=== PATIENT | male | born 1970 | race Caucasian/White ===

== ENCOUNTER 2018-10-15 21:08 | Emergency (ER) | payer SELFPAY ==
[~2018-10-15] VITALS: Ht 170.2 cm; Wt 117.0 kg
[~2018-10-15 21:08] MED LIST: ASP81TEC PO; CEPH500C PO; CODE-54 PO; CYCL10TA9 PO; GLIP10TA13 PO; HYDR-1231 PO; HYDR1CAP2 PO; HYOS0.1216 PO; IBP800T PO; IBUP800T26 PO; LISI10TA PO; LITH300C PO; METF1000 PO; METR500T PO; MTF500T PO; PARO20TA57 PO; PARO40TA2 PO; QUET50TA PO; SMV20T PO
[2018-10-15] MEDS ORDERED: PARO40TA3 (21:20)
[2018-10-15] MEDS ORDERED: LISI1TAB8 (21:20)
[2018-10-15] MEDS ORDERED: LTH450TCR (21:20)
[2018-10-15] MEDS ORDERED: GLIP10TA13 (21:20)
[2018-10-15] MEDS ORDERED: METF-399 (21:20)
[2018-10-15] MEDS ORDERED: LISI-552 (21:20)
--- NOTE | 2018-10-15 21:26 | ED Back Pain ---
General Chief Complaint: Back Problems Stated Complaint: LOWER BACK PAIN Nursing Triage Note: C/O R BACK PAIN X 3-4 DAYS, PATIENT REPORTS PAIN GOING DOWN INTO TESTICLE Nursing Sepsis Screen: No Definite Risk Source of Information: Patient, Other Exam Limitations: No Limitations History of Present Illness Date Seen by Provider: Oct 15, 2018 Time Seen by Provider: 21:15 Initial Comments Patient presents to ER with chief complaint last 2 days progressively worsening pain starting in his middle to low back going on the right side radiating to his right groin and right testicle. No dysuria or hematuria. No history of kidney stones. No history of back problems or back surgeries. He's had an appendectomy and gallbladder out. He does take Paxil, lithium, and denies a history of recreational drugs in the past 20 years. No trauma, falls or wrecks. No numbness weakness loss of control of bowel or bladder. He is a history of diabetes on metformin and glipizide. Allergies and Home Medications Allergies Coded Allergies: No Known Drug Allergies (Unverified , 01/29/10) Patient Home Medication List Home Medication List Reviewed: Yes Review of Systems Constitutional: No chills, No malaise EENTM: No ear pain, No eye pain Respiratory: No cough, No phlegm Cardiovascular: No chest pain, No edema Gastrointestinal: No abdominal pain, No constipation, No diarrhea, No nausea, No vomiting Genitourinary: No discharge, No dysuria Musculoskeletal: No back pain, No joint pain Past Wurphtw-Dyywhj-Biahno Hx Patient Social History Alcohol Use: Denies Use Recreational Drug Use: No Type Used: Electronic/Vapor Recent Foreign Travel: No Contact w/Someone Who Travel: No Recent Infectious Disease Expo: No Seasonal Allergies Seasonal Allergies: No Past Medical History Surgeries: Yes (right ORIF elbow) Appendectomy, Orthopedic Respiratory: Yes (past hx sleep apnea) Hypertension Neurological: No Reproductive Disorders: No Gastrointestinal: No Musculoskeletal: Yes Chronic Back Pain Endocrine: Yes Diabetes, Non-Insulin dep Cancer: No Psychosocial: Yes Bipolar, Depression Integumentary: No Blood Disorders: No Physical Exam Vital Signs Vital Signs - First Documented 10/15/18 21:15 Temp 98.5 Pulse 105 Resp 18 B/P (MAP) 141/111 (121) Pulse Ox 98 Capillary Refill : Less Than 3 Seconds Height, Weight, BMI Height: 5'7.00" Weight: 258lbs. oz. 117.599936lw; 40.40 BMI Method:Stated General Appearance: No Apparent Distress, WD/WN HEENT: PERRL/EOMI, TMs Normal, Moist Mucous Membranes Neck: Full Range of Motion, Normal Inspection, Non Tender, Supple Cardiovascular: Regular Rate, Rhythm, No Edema, Normal Peripheral Pulses Respiratory: Chest Non Tender, No Accessory Muscle Use, No Respiratory Distress Back: Normal Inspection, CVA Tenderness (R), Vertebral Tenderness (lumbar) Extremity: Normal Capillary Refill, Normal Inspection, No Pedal Edema Neurologic/Psychiatric: Alert, Oriented x3, No Motor/Sensory Deficits Skin: Normal Color, Warm/Dry Progress/Results/Core Measures Results/Orders Lab Results Laboratory Tests Test 10/15/18 21:20 10/15/18 21:25 Range/Units Urine Color YELLOW Urine Clarity CLEAR Urine pH 6 5-9 Urine Specific [place] 1.020 1.016-1.022 Urine Protein 1+ H NEGATIVE Urine Glucose (UA) NEGATIVE NEGATIVE Urine Ketones NEGATIVE NEGATIVE Urine Nitrite NEGATIVE NEGATIVE Urine Bilirubin NEGATIVE NEGATIVE Urine Urobilinogen NORMAL NORMAL MG/DL Urine Leukocyte Esterase 1+ H NEGATIVE Urine RBC (Auto) NEGATIVE NEGATIVE Urine RBC NONE /HPF Urine WBC NONE /HPF Urine Squamous Epithelial Cells RARE /HPF Urine Crystals NONE /LPF Urine Bacteria NEGATIVE /HPF Urine Casts NONE /LPF Urine Mucus NEGATIVE /LPF Urine Culture Indicated NO White Blood Count 9.9 4.3-11.0 10^3/uL Red Blood Count 4.70 4.35-5.85 10^6/uL Hemoglobin 14.5 13.3-17.7 G/DL Hematocrit 42 40-54 % Mean Corpuscular Volume 89 80-99 FL Mean Corpuscular Hemoglobin 31 25-34 PG Mean Corpuscular Hemoglobin Concent 35 32-36 G/DL Red Cell Distribution Width 12.5 10.0-14.5 % Platelet Count 398 130-400 10^3/uL Mean Platelet Volume 9.8 7.4-10.4 FL Neutrophils (%) (Auto) 59 42-75 % Lymphocytes (%) (Auto) 30 12-44 % Monocytes (%) (Auto) 7 0-12 % Eosinophils (%) (Auto) 4 0-10 % Basophils (%) (Auto) 1 0-10 % Neutrophils # (Auto) 5.8 1.8-7.8 X 10^3 Lymphocytes # (Auto) 3.0 1.0-4.0 X 10^3 Monocytes # (Auto) 0.7 0.0-1.0 X 10^3 Eosinophils # (Auto) 0.4 H 0.0-0.3 10^3/uL Basophils # (Auto) 0.1 0.0-0.1 10^3/uL Neutrophils % (Manual) 74 % Lymphocytes % (Manual) 22 % Monocytes % (Manual) 3 % Eosinophils % (Manual) 1 % Blood Morphology Comment NORMAL Sodium Level 130 L 135-145 MMOL/L Potassium Level 4.1 3.6-5.0 MMOL/L Chloride Level 100 98-107 MMOL/L Carbon Dioxide Level 18 L 21-32 MMOL/L Anion Gap 12 5-14 MMOL/L Blood Urea Nitrogen 13 7-18 MG/DL Creatinine 1.00 0.60-1.30 MG/DL Estimat Glomerular Filtration Rate > 60 BUN/Creatinine Ratio 13 Glucose Level 216 H 70-105 MG/DL Calcium Level 9.8 8.5-10.1 MG/DL Corrected Calcium 9.5 8.5-10.1 MG/DL Total Bilirubin 0.3 0.1-1.0 MG/DL Aspartate Amino Transf (AST/SGOT) 16 5-34 U/L Alanine Aminotransferase (ALT/SGPT) 41 0-55 U/L Alkaline Phosphatase 53 40-136 U/L Total Protein 7.8 6.4-8.2 GM/DL Albumin 4.4 3.2-4.5 GM/DL My Orders Orders - JONO HERNANDEZ Ua Culture If Indicated (10/15/18 21:19) Cbc And Manual Diff (10/15/18 21:19) Comprehensive Metabolic Panel (10/15/18 21:19) Ketorolac Injection (Toradol Injection) (10/15/18 21:30) Iv Heplock-Insert (Order) (10/15/18 21:19) Fentanyl Injection (Sublimaze Injection (10/15/18 22:00) Ct Abd/Pelvis Wo(Kidney Stone) (10/15/18 21:56) Hydrocodone/Apap 5/325 Tablet (Lortab 5 (10/15/18 23:15) Medications Given in ED Current Medications Medications Dose Ordered Sig/Serena Route Start Time Stop Time Status Last Admin Dose Admin Fentanyl Citrate 50 mcg ONCE ONCE IVP 10/15/18 22:00 10/15/18 22:01 DC 10/15/18 22:04 50 MCG Ketorolac Tromethamine 30 mg ONCE ONCE IVP 10/15/18 21:30 10/15/18 21:31 DC 10/15/18 21:30 30 MG Vital Signs/I&O 10/15/18 21:15 Temp 98.5 Pulse 105 Resp 18 B/P (MAP) 141/111 (121) Pulse Ox 98 Blood Pressure Mean: 121 Progress Progress Note #1: Time: :27 Progress Note Differential between organic lumbago without sciatica versus kidney stone. We'll obtain some basic labs, urine and give him some ketorolac. Progress Note #2: Time: 23:21 Progress Note The patient's pain improved from a 10 out of 10 down to a 7 out of 10 with Toradol. We gave him 50 g of fentanyl which improved his pain even further. This pain started to regain so we have given him a hydrocodone tablet. Plan to send him home on some NSAIDs, muscle relaxants and a few hydrocodone for back pain. Follow-up with primary care. No evidence of inguinal hernia on exam or on CT. No evidence of acute injury to the back. Conservative management. Diagnostic Imaging Diagonstic Imaging: CT (non-contrast, kidney stone study.) Plain Films/CT/US/NM/MRI: abdomen, pelvis Comments No acute findings. No renal calculus or hydronephrosis seen. Reviewed: Reviewed [place] Study, Reviewed by Me Departure Impression Primary Impression: Back pain Qualified Codes: M54.5 - Low back pain Additional Impression: Lumbar radiculopathy Disposition: HOME, SELF-CARE Condition: Stable Departure-Patient Inst. Decision time for Depature: 23:23 Referrals: [facility] (PCP) Primary Care Physician STANFORD OSUNA MD (Family) Primary Care Physician Patient Instructions: Low Back Pain (DC), Radiculopathy (DC) Add. Discharge Instructions: I suspect you have some back pain that is causing pinching on a nerve. Likely this will resolve on its own but you can start taking the prescription Naprosyn 1 capsules twice a day for the next 2 weeks to try and relieve the inflammation in your back. If you have severe back pain that keeps you from being functional then you can take one tablet of the hydrocodone every 6 hours as needed. Hydrocodone will cause drowsiness and constipation so do not mix with alcohol and pecan picker a bottle of MiraLAX and take one capful daily with 6 ounces water. Obtain a back brace and wear it on the days that you're having back pain. Use heat applied rectally to your back. Use topical patches or creams for back pain such as icy hot, Salonpas with lidocaine, etc. Not seeing significant improvement in 1-2 weeks follow-up with your primary care doctor to talk about other strategies such as steroids, physical therapy etc. Consider chiropractic. If you lose control of your bowel or bladder or have weakness causing falls in your lower extremities then you should return to the ER for further evaluation. All discharge instructions reviewed with patient and/or family. Voiced understanding. Scripts Cyclobenzaprine HCl (Cyclobenzaprine HCl) 10 Mg Tablet 10 MG PO Q8H PRN for SPASMS, #15 TAB 0 Refills Prov: JONO HERNANDEZ 10/15/18 Naproxen (Naprosyn) 500 Mg Tablet 500 MG PO BID, #30 TAB 0 Refills Prov: JONO HERNANDEZ 10/15/18 Hydrocodone Bit/Acetaminophen (Hydrocodone/Acetaminophen 5/325mg Tablet) 1 Tab Tab 1 EACH PO Q4-6HR PRN for PAIN-MODERATE MDD 10, #14 TAB 0 Refills Prov: JONO EHRNANDEZ 10/15/18 JONO HERNANDEZ Oct 15, 2018 21:26
[2018-10-15] MEDS ORDERED: KETOROLAC 30 MG/ML VIAL IVP ONE (21:30)
[2018-10-15 21:33] LABS: BILIRUBIN,URINE NEGATIVE (NEGATIVE); CLARITY,URINE CLEAR; COLOR,URINE YELLOW; GLUCOSE, URINE (UA) NEGATIVE (NEGATIVE); KETONES,URINE NEGATIVE (NEGATIVE); LEUKOCYTE ESTERASE ,URINE 1+ (NEGATIVE); NITRITE,URINE NEGATIVE (NEGATIVE); PH,URINE 6 (5-9); PROTEIN,URINE 1+ (NEGATIVE); UROBILINOGEN,URINE NORMAL (NORMAL)
[2018-10-15 21:34] LABS: BASOPHILS # (AUTO) 0.1 10^3/uL (0.0-0.1); BASOPHILS % (AUTO) 1 % (0-10); EOSINOPHILS # (AUTO) 0.4 10^3/uL (0.0-0.3); EOSINOPHILS % (AUTO) 4 % (0-10); HEMATOCRIT 42 % (40-54); HEMOGLOBIN 14.5 G/DL (13.3-17.7); LYMPHOCYTES % (AUTO) 30 % (12-44); MEAN CORPUSCULAR HEMOGLOBIN 31 PG (25-34); MEAN CORPUSCULAR HGB CONC 35 G/DL (32-36); MEAN CORPUSCULAR VOLUME 89 FL (80-99); MEAN PLATELET VOLUME 9.8 FL (7.4-10.4); MONOCYTES # (AUTO) 0.7 X 10^3 (0.0-1.0); MONOCYTES % (AUTO) 7 % (0-12); NEUTROPHILS # (AUTO) 5.8 X 10^3 (1.8-7.8); NEUTROPHILS % (AUTO) 59 % (42-75); PLATELET COUNT 398 10^3/uL (130-400); RED CELL DISTRIBUTION WIDTH 12.5 % (10.0-14.5); WHITE BLOOD COUNT 9.9 10^3/uL (4.3-11.0)
[2018-10-15 21:45] LABS: BACTERIA,URINE NEGATIVE /HPF; SQUAMOUS EPITHELIAL CELL,UR RARE /HPF
[2018-10-15 21:54] LABS: ALANINE AMINOTRANSFERASE 41 U/L (0-55); ALBUMIN 4.4 GM/DL (3.2-4.5); ALKALINE PHOSPHATASE 53 U/L (40-136); BILIRUBIN,TOTAL 0.3 MG/DL (0.1-1.0); BUN/CREATININE RATIO 13; CALCIUM 9.8 MG/DL (8.5-10.1); CARBON DIOXIDE 18 MMOL/L (21-32); CHLORIDE 100 MMOL/L (98-107); GFR ESTIMATED > 60; GLUCOSE 216 MG/DL (70-105); POTASSIUM 4.1 MMOL/L (3.6-5.0); SODIUM 130 MMOL/L (135-145); TOTAL PROTEIN 7.8 GM/DL (6.4-8.2)
[2018-10-15] MEDS ORDERED: fentaNYL INJECTION 100 MCG/2 ML AMP IVP ONE (22:00)
[2018-10-15 22:05] LABS: EOSINOPHILS % (MANUAL) 1 %; LYMPHOCYTES % (MANUAL) 22 %; MONOCYTES % (MANUAL) 3 %; NEUTROPHILS % (MANUAL) 74 %; RBC MORPH NORMAL
[2018-10-15] MEDS ORDERED: HYDROcodone/APAP 5 MG/325 MG (LORTAB) TAB PO ONE (23:15)
[2018-10-15] MEDS ORDERED: ACHD5005 PO (23:34)
[2018-10-15] MEDS ORDERED: NAPR-1071 PO (23:34)
[2018-10-15] MEDS ORDERED: CYCL10TA9 PO (23:34)
[2018-10-16 00:03] VITALS: BP 141/111
--- NOTE | 2018-10-16 06:45 | Diagnostic Imaging Report ---
PROCEDURE: CT urinary tract, rule out kidney stone. TECHNIQUE: Multiple contiguous axial images were obtained through the abdomen and pelvis without the use of intravenous contrast. Auto Exposure Controls were utilized during the CT exam to meet ALARA standards for radiation dose reduction. INDICATION: Back pain 3-4 days history radiating into the testicles. No priors. There is fatty infiltration of the liver, chronic. The gallbladder surgically absent. No bile duct dilatation. The adrenals, spleen, and pancreas negative. There is no hydroureteronephrosis and no opaque urinary tract calculus disease. No perinephric or periureteric edema. There is no bowel obstruction, ascites, abscess, hematoma or fluid collections. There is a tiny umbilical fatty hernia without inflammation. No aneurysm, adenopathy or mass. The osseous structures appeared nonacute. IMPRESSION: Unobstructed and nonfocal urinary tracts, no inflammatory process, obstructive features or acute appearing abdominal pelvic abnormalities. Mild hepatic steatosis and tiny fatty umbilical hernia noted. Dictated by: Dictated on workstation # [id number]
== END 2018-10-15 23:53 | disposition home or self-care (01) ==
LOC: EDUNIT# 21:08 → ER 21:09
DX: M54.16 Radiculopathy, lumbar region (principal); E11.9 Type 2 diabetes mellitus without complications; I10 Essential (primary) hypertension; F31.9 Bipolar disorder, unspecified; Z90.49 Acquired absence of other specified parts of digestive tract; Z79.84 Long term (current) use of oral hypoglycemic drugs
CPT/HCPCS: 36415; 74176; 80053; 81000; 85007; 85027; 96374; 96375